=== PATIENT | female | born 1965 | race Caucasian/White ===

== ENCOUNTER → 2025-01-26 13:56 | Outpatient (REF) | payer BC, SELFPAY | LOC: HWEVLT 13:56 | PROVIDERS: ATTENDING PHYSICIAN Radiology Vascular & Interventional Radiology | DX: I83.892 Varicose veins of left lower extremity with other complications (principal) | CPT/HCPCS: 93971 ==

== ENCOUNTER → 2025-03-30 12:20 | Outpatient (REF) | payer BC, SELFPAY | LOC: HWEVLT 12:20 | PROVIDERS: ATTENDING PHYSICIAN Radiology Diagnostic Radiology | DX: I83.892 Varicose veins of left lower extremity with other complications (principal) | CPT/HCPCS: 36478; C1769 ==

== ENCOUNTER → 2025-04-11 08:04 | Outpatient (REF) | payer BC, SELFPAY | LOC: HWEVLT 08:04 | PROVIDERS: ATTENDING PHYSICIAN Radiology Diagnostic Radiology | DX: I83.892 Varicose veins of left lower extremity with other complications (principal) | CPT/HCPCS: 93971 ==